=== PATIENT | male | born 1985 | race Caucasian/White ===

== ENCOUNTER → 2016-09-27 | Outpatient (CLI) | payer BC, OTHER | LOC: RAD 17:12 | DX: S46.011A Strain of muscle(s) and tendon(s) of the rotator cuff of right shoulder, initial encounter (principal) | CPT/HCPCS: 73030 ==

== ENCOUNTER → 2020-11-30 | Outpatient (CLI) | payer BC ==
[~2020-11-30] MED LIST: NAPROSYN500 MG PO
== END ==
LOC: RAD 23:31
DX: R07.2 Precordial pain (principal)
CPT/HCPCS: 71046

== ENCOUNTER → 2020-11-30 | Outpatient (CLI) | payer BC ==
[2020-11-30 23:45] LABS: HEMOGLOBIN 14.7 gm/dl (14.0-17.5); RED BLOOD COUNT 4.93 M/UL (4.20-5.50); WHITE BLOOD COUNT 12.3 K/UL (4.5-11.0)
[2020-12-01 00:03] LABS: BUN/CREATININE RATIO 19 (0-10)
[2020-12-02 08:15] LABS: PROLACTIN 12.4 ng/mL (4.0-15.2)
== END ==
LOC: LAB 23:22
PROVIDERS: Family Medicine
DX: I10 Essential (primary) hypertension (principal); N52.9 Male erectile dysfunction, unspecified
CPT/HCPCS: 36415; 80053; 80061; 83735; 84146; 84402; 84403; 84443; 84550; 85027

== ENCOUNTER → 2021-04-23 | Outpatient (CLI) | payer BC ==
[2021-04-23 06:33] LABS: HEMOGLOBIN 12.8 gm/dl (14.0-17.5); RED BLOOD COUNT 4.43 M/UL (4.20-5.50); WHITE BLOOD COUNT 10.6 K/UL (4.5-11.0)
[2021-04-23 07:01] LABS: BUN/CREATININE RATIO 17 (0-10)
[2021-04-24 08:15] LABS: HBSAG SCREEN Negative (Negative); HEP A AB, IGM Negative (Negative); HEP B CORE AB, IGM Negative (Negative); HEP C VIRUS AB <0.1 (0.0-0.9)
[2021-04-24 11:15] LABS: ALPHA-1-ANTITRYPSIN, SERUM 164 mg/dL (95-164)
[2021-04-24 14:12] LABS: MITOCHONDRIAL (M2) ANTIBODY <20.0 Units (0.0-20.0)
== END ==
LOC: LAB 06:11
PROVIDERS: Family Medicine
DX: R79.89 Other specified abnormal findings of blood chemistry (principal); I10 Essential (primary) hypertension; D72.829 Elevated white blood cell count, unspecified
CPT/HCPCS: 36415; 80048; 80074; 80076; 82103; 82728; 83540; 83550; 83735; 85027; 86038

== ENCOUNTER → 2021-08-18 | Outpatient (CLI) | payer BC ==
[2021-08-18 06:41] LABS: HEMOGLOBIN 13.1 gm/dl (14.0-17.5); RED BLOOD COUNT 4.56 M/UL (4.20-5.50); WHITE BLOOD COUNT 11.7 K/UL (4.5-11.0)
[2021-08-18 07:15] LABS: BUN/CREATININE RATIO 20 (0-10)
== END ==
LOC: LAB 06:13
PROVIDERS: Family Medicine
DX: I10 Essential (primary) hypertension (principal); R73.9 Hyperglycemia, unspecified; D64.9 Anemia, unspecified
CPT/HCPCS: 36415; 80053; 80061; 82728; 83036; 83540; 83550; 83735; 85027; 85045

== ENCOUNTER → 2021-09-21 | Day surgery (SDC) | payer BC ==
[~2021-09-21] MED LIST changes: +BLOOD GLUCOSE1 EAC5 MC; +ESCITALOPRAM OX10 MG PO; +GLUCOSE TEST S1 EACH MC; +HYDROCHLOROTHIA25 MG PO; +LANCETS THIN1 EACH MC; +LISINOPRIL10 MG PO; +OMEPRAZOLE MAGN20 MG PO; +POTASSIUM CHLO10 ME2 PO; +VIAGRA25 MG PO
== END | disposition home or self-care (01) ==
LOC: OR 05:44
DX: Z12.11 Encounter for screening for malignant neoplasm of colon (principal); N40.0 Benign prostatic hyperplasia without lower urinary tract symptoms; E11.9 Type 2 diabetes mellitus without complications; K21.9 Gastro-esophageal reflux disease without esophagitis; I10 Essential (primary) hypertension; E66.9 Obesity, unspecified; Z68.42 Body mass index [BMI] 45.0-49.9, adult; Z80.0 Family history of malignant neoplasm of digestive organs
CPT/HCPCS: 82962; J2704

== ENCOUNTER 2021-10-07 01:55 | Emergency (ER) | payer OTHER ==
[2021-10-07] MEDS ORDERED: ONDANSETRON ODT4 MG SL (03:13)
== END 2021-10-07 03:17 | disposition home or self-care (01) ==
LOC: ER1 01:55
DX: S00.33XA Contusion of nose, initial encounter (principal); E11.9 Type 2 diabetes mellitus without complications; I10 Essential (primary) hypertension; K21.9 Gastro-esophageal reflux disease without esophagitis; W51.XXXA Accidental striking against or bumped into by another person, initial encounter; Y99.0 Civilian activity done for income or pay
CPT/HCPCS: 70160; 99283